=== PATIENT | male | born 1985 | race Hispanic/Latino ===

== ENCOUNTER → 2022-05-03 09:56 | Outpatient (CLI) | payer SELFPAY ==
--- NOTE | 2022-05-03 | DI.RAD.S_ITS ---
PROCEDURE: XR LUMBAR SPINE 2-3V INDICATIONS: Vertebrogenic low back pain TECHNIQUE: Three views of the lumbar spine were acquired. COMPARISON: None. FINDINGS: Bones: Five [id number] vertebrae are present. There is normal bony alignment. No vertebral body compression fractures. No suspicious bony lesions. Soft tissues: Overlying bowel gas pattern is normal. No suspicious soft tissue calcifications. IMPRESSION: 1. No vertebral body fracture, pathologic subluxation, or significant disc height loss. Dictated by: Meri Figueroa M.D. on 05/03/2022 at 11:41 Approved by: Meri Figueroa M.D. on 05/03/2022 at 11:42
== END ==
PROVIDERS: Referring Provider Chiropractor; Visit Provider Chiropractor
DX: M54.51 Vertebrogenic low back pain (principal)
CPT/HCPCS: 72100

== ENCOUNTER 2022-05-03 11:01 | Emergency (ER) | payer SELFPAY ==
[2022-05-03 11:17] VITALS: BP 118/67; PULSE 76; RESP 16; TEMP 35.9; O2SAT 98
--- NOTE | 2022-05-03 12:48 | ED.BACK ---
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 Patient is [place]-speaking only and a coating machine helper was used for this conversation. Patient states he has a history of low back pain with sciatica in the past, states the last time this happened was three years ago and pain was just as severe but different in nature. Patient denies any sciatica at this time, denies any new weakness, states that his muscle tightness and pain. Patient denies any numbness or tingling, incontinence, recent illness, abdominal pain, or other back pain. He states his pain is in his low lumbar region, and it does not radiate anywhere, does not extend to his tailbone. He denies any recent trauma, states that he is in good health, is not medications at this time. Denies having any allergies, denies having a primary care physician. Related Data Previous Rx's Medication Instructions Recorded lidocaine 5 % topical patch See Rx Instructions topical 05/03/22 .COMPLEX #15 ea methocarbamol 500 mg tablet 500 mg PO TID #14 tabs 05/03/22 Allergies Allergy/AdvReac Type Severity Reaction Status Date / Time No Known Drug Allergies Allergy Verified 05/03/22 11:17 Review of Systems <DARLENE Castrejon - Last Filed: 05/03/22 14:04> Review of Systems Narrative: General: denies fever, chills Head/Neck: denies headache, neck pain Eyes: denies visual changes, eye pain Cardio: denies chest pain, palpitations Respiratory: denies shortness of breath, cough GI: denies abdominal pain, nausea, vomiting, or diarrhea : denies dysuria, hematuria or flank pain MSK: denies new joint pain, muscle weakness or swelling, endorses lumbar back pain, midline, was gradual in nature Skin: denies rash, itching or wound Neuro: denies numbness, tingling, dizziness Patient History <DARLENE Castrejon - Last Filed: 05/03/22 14:04> Social History Smoking Status: Unknown if ever smoked Smoking Status: Unknown if ever smoked alcohol intake frequency: holidays/special occasions only Substance Use Type: does not use Exam <DARLENE Castrejon - Last Filed: 05/03/22 14:04> Narrative Exam Narrative: Independently reviewed vitals signs and nursing notes. General: Awake, alert, nontoxic, no cardiorespiratory distress, appears to be in pain, [place]speaking, able to stand and sit, Head/Neck: Atraumatic, neck supple Eyes: EOMI, conjunctiva normal Nose: nares patent, no rhinorrhea Mouth/Throat: moist mucus membranes Cardio: Regular rate and rhythm, no peripheral edema Respiratory: respirations unlabored without wheezing, stridor, or rales. No retractions, hypoxia or tachypnea GI: Abdomen soft, nontender to palpation x4 quadrants, no guarding or rebound tenderness MSK: Moves all extremities, neurovascularly intact, range of motion without deficit, L4-L5 tenderness to palpation without radiation, lumbar paraspinal musculature is tense and tender, no step-offs, no weakness Skin: Normal capillary refill, no rash Neuro: Normal speech and cognition, normal gait Initial Vital Signs Initial Vital Signs: Vital Signs Temperature 96.6 F L 05/03/22 11:17 Pulse Rate 76 05/03/22 11:17 Respiratory Rate 16 05/03/22 11:17 Blood Pressure 118/67 05/03/22 11:17 Pulse Oximetry 98 05/03/22 11:17 Oxygen Delivery Method 05/03/22 11:17 <Gisel Corona DO - Last Filed: 05/09/22 09:08> Initial Vital Signs Initial Vital Signs: Vital Signs Temperature 96.6 F L 05/03/22 11:17 Pulse Rate 76 05/03/22 11:17 Respiratory Rate 16 05/03/22 11:17 Blood Pressure 118/67 05/03/22 11:17 Pulse Oximetry 98 05/03/22 11:17 Oxygen Delivery Method 05/03/22 11:17 Course <DARLENE Castrejon - Last Filed: 05/03/22 14:04> Orders Ordered: Discontinued Medications Hydrocodone Bitart/Acetaminophen (Hydrocodone/Acet 5/325 Tablet) 1 tab PO NOW ONE Stop: 05/03/22 12:41 Last Admin: 05/03/22 13:01 Dose: 1 tab Documented By: ROCHELLE Ketorolac Tromethamine (Ketorolac 30 Mg/Ml Vial) 15 mg IM NOW ONE Stop: 05/03/22 12:41 Last Admin: 05/03/22 13:01 Dose: 15 mg Documented By: ROCHELLE Lidocaine (Lidocaine Patch 1 Each Adh..Patch) 1 each TOP NOW ONE Stop: 05/03/22 12:42 Last Admin: 05/03/22 13:01 Dose: 1 each Documented By: ROCHELLE Methocarbamol (Methocarbamol 500 Mg Tablet) 500 mg PO NOW ONE Stop: 05/03/22 12:41 Last Admin: 05/03/22 13:01 Dose: 500 mg Documented By: ROCHELLE Vital Signs Vital signs: Vital Signs - 8 hr 05/03/22 11:17 05/03/22 13:29 Temperature 96.6 F L Pulse Rate 76 80 Respiratory Rate 16 18 Blood Pressure 118/67 123/70 Pulse Oximetry 98 99 Oxygen Delivery Method Room Air Room Air <Gisel Corona DO - Last Filed: 05/09/22 09:08> Orders Ordered: Discontinued Medications Hydrocodone Bitart/Acetaminophen (Hydrocodone/Acet 5/325 Tablet) 1 tab PO NOW ONE Stop: 05/03/22 12:41 Last Admin: 05/03/22 13:01 Dose: 1 tab Documented By: ROCHELLE Ketorolac Tromethamine (Ketorolac 30 Mg/Ml Vial) 15 mg IM NOW ONE Stop: 05/03/22 12:41 Last Admin: 05/03/22 13:01 Dose: 15 mg Documented By: ROCHELLE Lidocaine (Lidocaine Patch 1 Each Adh..Patch) 1 each TOP NOW ONE Stop: 05/03/22 12:42 Last Admin: 05/03/22 13:01 Dose: 1 each Documented By: ROCHELLE Methocarbamol (Methocarbamol 500 Mg Tablet) 500 mg PO NOW ONE Stop: 05/03/22 12:41 Last Admin: 05/03/22 13:01 Dose: 500 mg Documented By: ROCHELLE Vital Signs Vital signs: Vital Signs - 8 hr 05/03/22 11:17 05/03/22 13:29 Temperature 96.6 F L Pulse Rate 76 80 Respiratory Rate 16 18 Blood Pressure 118/67 123/70 Pulse Oximetry 98 99 Oxygen Delivery Method Room Air Room Air MDM - Back Pain/Injury <Kimmie Charles Olguin [facility] - Last Filed: 05/03/22 14:04> Imaging Data lumbar xray: Radiologist's Impression: PROCEDURE:? XR LUMBAR SPINE 2-3V ? INDICATIONS:? Vertebrogenic low back pain ? TECHNIQUE:? Three views of the lumbar spine were acquired.? ? COMPARISON:? None. ? FINDINGS:? ? Bones:? Five [id number]-[id number] vertebrae are present.? There is normal bony alignment.? No vertebral body compression fractures.? No suspicious bony lesions.? ? Soft tissues:? Overlying bowel gas pattern is normal.? No suspicious soft tissue calcifications.? ? ? IMPRESSION:? ? 1. No vertebral body fracture, pathologic subluxation, or significant disc height loss. ? ? Dictated by: Meri Figueroa M.D. on 05/03/2022 at 11:41 ? ? Approved by: Meri Figueroa M.D. on 05/03/2022 at 11:42 ? [facility] Narrative Medical decision making narrative: Lumbar spine x-ray shows no vertebral body fracture, pathologic subluxation, or significant disc height. There are no vertebral body compression fractures or suspicious bony lesions. Patient had not had any medication prior to his arrival, he was having muscle spasms and denies any radiation of his pain. He was given Toradol 15 injection and Robaxin 500 mg with a lidocaine patch and hydrocodone for his pain. Reports that this was helpful, he was given a prescription for Robaxin and lidocaine patches, encouraged to rest, stay hydrated, use heat and ice as tolerated, and to start mobilizing as tolerated. He does not have a PCP currently. Patient presents with acute onset of lower back pain, afebrile. Given history and exam, suspect likely musculoskeletal etiology, he is nontoxic appearing with no overt risk factors for epidural hematoma or abscess. No overt evidence or acute critical cord compression with nonfocal neuro exam. Neurovascularly intact distally, no evidence infection, no peritoneal signs or abdominal pain on exam low suspicion for AAA. He does not have any weakness, incontinence, neurovascular or sensation changes or concerning findings for cauda equina syndrome, lumbar fracture, neuropathic pain, epidural abscess, or meningitis. Pain medication improve patient's pain slightly. Patient is appropriate and amenable to discharge home. Vital signs are stable on repeat examination is unremarkable. Patient has been informed of results. Patient has been given strict return to ER precautions for any new or worsening symptoms. Patient understands to follow up closely with outpatient providers as instructed. Patient understands plan and agrees to discharge home. All questions and concerns answered at this time. Discharge Plan Departure Patient Disposition: Home Clinical Impression: Lumbar back pain, Strain of lumbar region Instructions: DI for Back Spasm, DI for Back Strain or Sprain Activity Restrictions/Additional Instructions: *You have been diagnosed with a strain of your lumbar spine. This is likely causing muscle spasms which causes severe pain and inability to move. Please take ibuprofen 600 mg every 6-8 hours as needed for pain with food and water, you may take Tylenol in addition to this with a lidocaine patch. Try heat or ice whichever feels better you may use a muscle relaxer every 8 hours as needed for muscle spasms, caution because they will make you feel tired. Please do not drive or operate machinery if you have taken a muscle relaxer. I hope you feel better soon. *What to do: *Please continue to take your regular medications as directed. [x ] New medication prescriptions sent to your pharmacy: [ [facility]] [ ] New medication written as a paper prescription [ ] No new medications given *Please follow up with your primary care provider in 2-3 days, call for an appointment. Let them know you were seen in the Emergency Department and that we asked that you be seen for follow-up. We will electronically transmit a record of today's note if your PCP is in our system *If you do not have a primary care provider please contact [phone] to establish care with one of [facility] primary care providers. *Return to Emergency Department if you should have any new, worsening or concerning symptoms, such as [fever greater than 101F, chills, worsening pain, persistent vomiting or other bothersome symptoms] Prescriptions: New lidocaine 5 % adhesive patch,medicated See Rx Instructions .ROUTE .COMPLEX Qty: 15 0RF Rx Instructions: leave on most painful area for up to 12 hrs methocarbamol 500 mg tablet 500 mg PO TID Qty: 14 0RF Visit Report Forms: Patient Portal/API <Gisel Corona, DO - Last Filed: 05/09/22 09:08> Cosign ED Attending Olamideature Attestation: I was immediately available in the department for consultation. Documentation has been reviewed. I agree with assessment and plan.
[2022-05-03] MEDS: KETOROLAC 30 MG/ML VIAL 15 MG IM (13:01)
[2022-05-03] MEDS: LIDOCAINE PATCH 1 EACH ADH..PATCH TOP (13:01)
[2022-05-03] MEDS: methocarbamoL 500 MG TABLET PO (13:01)
[2022-05-03] MEDS: HYDROCODONE/ACET 5/325 TABLET 1 TAB PO (13:01)
[2022-05-03 13:29] VITALS: BP 123/70; PULSE 80; RESP 18; O2SAT 99
== END 2022-05-03 14:02 | disposition home or self-care (01) ==
PROVIDERS: Emergency Provider Nurse Practitioner Critical Care Medicine
DX: S39.012A Strain of muscle, fascia and tendon of lower back, initial encounter (principal)
CPT/HCPCS: 96372; 99283; J1885